=== PATIENT | male | born 1965 | race Caucasian/White ===

== ENCOUNTER → 2018-10-07 09:09 | Outpatient (CLI) | payer OTHER, SELFPAY ==
--- NOTE | 2018-10-07 | DI.RAD.S_ITS ---
PROCEDURE: FL SHOULDER INJECTION MR/CT RT INDICATIONS: PAIN IN RIGHT SHOULDER TECHNIQUE: The indications, alternatives, benefits, risks, and complications of the procedure were explained to the patient. Written informed consent was obtained and placed in the chart. The shoulder was examined fluoroscopically and a site for needle placement chosen for entry into the glenohumeral joint from an anterior approach. The skin was prepped and draped in a sterile fashion, and 1% lidocaine infiltrated from skin down to joint capsule. A spinal needle was inserted into the glenohumeral joint, and a small amount of iodinated contrast media injected to confirm intra-articular placement of the needle tip. This was followed by approximately 12 mL dilute solution of a gadolinium containing MR contrast agent. The needle was removed and a dressing was applied. The patient was given postprocedural instructions and sent to the MR suite for MR imaging. FINDINGS: A single fluoroscopic spot image demonstrates intra-articular location of injected iodinated contrast. IMPRESSION: Successful fluoroscopically guided administration of dilute Gadolinium solution into the shoulder joint for MR arthrogram. Dictated by: Brittnee Souza M.D. on 10/07/2018 at 10:47 Approved by: Brittnee Souza M.D. on 10/07/2018 at 10:47
--- NOTE | 2018-10-07 | DI.MRI.S_ITS ---
PROCEDURE: MR SHOULDER RT W CON INDICATIONS: Pain in right shoulder TECHNIQUE: After the administration of 12 mL of dilute intra-articular Gadolinium contrast, oblique coronal T1 and T2 spin echo with fat saturation, oblique sagittal T1 spin echo with and without fat saturation, oblique sagittal T2 fast spin echo with fat saturation, axial T1 spin echo with fat saturation through the shoulder. COMPARISON: None. FINDINGS: Image quality: Diagnostic. Rotator cuff: No full-thickness or high-grade partial-thickness tear the rotator cuff is identified. There is thickening and increased signal identified involving the distal supraspinatus tendon with possible bursal surface fraying. Infraspinatus increased signal is also evident near the footprint with possible low-grade partial-thickness tearing. The subscapularis and teres minor tendons are intact. There is no significant atrophy of rotator cuff muscles. Bones and bursae: No acute fracture or dislocation is evident. No suspicious osseous lesions are identified. There are mild degenerative changes of the glenohumeral joint. Severe degenerative changes of the acromioclavicular joint are present with prominent undersurface osteophytes and degenerative/active marrow changes. There is adequate distention of the right glenohumeral joint with the injected contrast. No loose intra-articular joint bodies are appreciated. Capsule and soft tissues: There is a small superior labral tear identified extending from the 11 o'clock position to the 1 o'clock position. No detached labral fragments are identified. The long head of the biceps tendon is normally positioned within the bicipital groove and is otherwise intact and unremarkable. The superior, middle, and inferior glenohumeral ligaments are intact. IMPRESSION: 1. Low-grade partial-thickness tearing and tendinopathy of the supraspinatus and infraspinatus tendons. 2. Severe degenerative changes of the acromioclavicular joint may be resulting in subacromial impingement and clinical correlation is recommended. 3. Small superior labral tear. 4. Mild degenerative changes of the glenohumeral joint. Dictated by: Kevon Matias M.D. on 10/07/2018 at 14:42 Approved by: Kevon Matias M.D. on 10/07/2018 at 14:45
== END ==
PROVIDERS: Visit Provider Registered Nurse Diabetes Educator
DX: M25.511 Pain in right shoulder (principal); M75.111 Incomplete rotator cuff tear or rupture of right shoulder, not specified as traumatic; M19.011 Primary osteoarthritis, right shoulder; S43.491A Other sprain of right shoulder joint, initial encounter
CPT/HCPCS: 23350; 73222; 77002